=== PATIENT | female | born 1965 | race Two or more races ===

== ENCOUNTER 2017-10-18 12:44 | Emergency (ER) | payer BC, OTHER ==
[2017-10-18 12:56] VITALS: TEMP 98.5; BMI 25.6
--- NOTE | 2017-10-18 13:29 | PDOC ---
History of Present Illness <Stephanie Mauro - Last Filed: 10/18/17 15:23> - General History Source: Patient Exam Limitations: No Limitations - History of Present Illness Initial Comments: 10/18/17 17:12 Patient is a 52 year old female with no significant past medical history who presents to the ED with complaints of chest pain that began this morning. Patient reports being at work when she began to experience sudden chest pain that lasted a few minutes. She reports experience bilateral lower back pain yesterday afternoon. Patient reports experiencing intermittent SOB, cough, and congestion, stating she believes she has a cold or bronchitis. She currently states she has not see her PCP in 4 years. Denies nausea, vomiting, Denies fevers, chills. Denies contact with sick individuals, out of state travelling. Denies any other symptoms. Allergies: None Social history: Current smoker (8 cigarettes per day). No alcohol. No illicit drugs. Surgical history: None PMD: Dr. Hopper <Wilmar Chris - Last Filed: 10/18/17 17:13> - General Chief Complaint: Chest Pain Stated Complaint: CHEST PAIN Time Seen by Provider: 10/18/17 13:07 Past History - Suicide/Smoking/Psychosocial Hx Smoking Status: Yes Smoking History: Current every day smoker Have you smoked in the past 12 months: Yes Number of Cigarettes Smoked Daily: 8 Information on smoking cessation initiated: No <Stephanie Mauro - Last Filed: 10/18/17 15:23> <Wilmar Chris - Last Filed: 10/18/17 17:13> - Past Medical History Allergies/Adverse Reactions: Allergies Allergy/AdvReac Type Severity Reaction Status Date / Time No Known Allergies Allergy Verified 10/18/17 12:53 Home Medications: Ambulatory Orders Albuterol Sulfate Inhaler - [Ventolin HFA Inhaler -] 1 - 2 inh PO QID PRN #1 inhaler 10/18/17 Azithromycin [Zithromax 250mg Tablets -] 250 mg PO UTDICT #6 tab 10/18/17 Review of Systems - Review of Systems Able to Perform ROS?: Yes Comments:: 10/18/17 17:12 GENERAL/CONSTITUTIONAL: No fever or chills. No weakness. HEAD, EYES, EARS, NOSE AND THROAT: No change in vision. No ear pain or discharge. No sore throat. GASTROINTESTINAL: No nausea, vomiting, diarrhea or constipation. GENITOURINARY: No dysuria, frequency, or change in urination. CARDIOVASCULAR: +SOB. +Chest pain. +Cough RESPIRATORY: No cough, wheezing, or hemoptysis. MUSCULOSKELETAL: +Back pain. No joint or muscle swelling or pain. No neck. SKIN: No rash NEUROLOGIC: No headache, vertigo, loss of consciousness, or change in strength/ sensation. ENDOCRINE: No increased thirst. No abnormal weight change. HEMATOLOGIC/LYMPHATIC: No anemia, easy bleeding, or history of blood clots. ALLERGIC/IMMUNOLOGIC: No hives or skin allergy. All Other Systems: Reviewed and Negative <Wilmar Chris - Last Filed: 10/18/17 17:13> *Physical Exam - Vital Signs Last Vital Signs Temp Pulse Resp BP Pulse Ox 98.5 F 74 16 133/69 98 10/18/17 12:53 10/18/17 12:53 10/18/17 12:53 10/18/17 12:53 10/18/17 12:53 <Stephanie Mauro - Last Filed: 10/18/17 15:23> - Vital Signs Last Vital Signs Temp Pulse Resp BP Pulse Ox 98.5 F 56 L 18 109/60 97 10/18/17 12:53 10/18/17 15:55 10/18/17 15:55 10/18/17 15:55 10/18/17 15:55 - Physical Exam Comments: 10/18/17 17:12 GENERAL: +Looks anxious Awake, alert, and fully oriented, in no acute distress HEAD: No signs of trauma EYES: PERRLA, EOMI, sclera anicteric, conjunctiva clear ENT: +Intermittent loose cough. Auricles normal inspection, hearing grossly normal, nares patent, oropharynx clear without exudates. Moist mucosa NECK: Normal ROM, supple, no lymphadenopathy, JVD, or masses LUNGS: Breath sounds equal, clear to auscultation bilaterally. No wheezes, and no crackles HEART: Regular rate and rhythm, normal S1 and S2, no murmurs, rubs or gallops ABDOMEN: Soft, nontender, normoactive bowel sounds. No guarding, no rebound. No masses EXTREMITIES: Normal range of motion, no edema. No clubbing or cyanosis. No cords, erythema, or tenderness NEUROLOGICAL: Cranial nerves II through XII grossly intact. Normal speech, normal gait SKIN: Warm, Dry, normal turgor, no rashes or lesions noted. <Wilmar Chris - Last Filed: 10/18/17 17:13> ED Treatment Course - LABORATORY CBC & Chemistry Diagram: 10/18/17 13:50 10/18/17 13:50 <Stephanie Mauro - Last Filed: 10/18/17 15:23> - LABORATORY CBC & Chemistry Diagram: 10/18/17 13:50 10/18/17 13:50 - ADDITIONAL ORDERS Additional order review: Laboratory Results 10/18/17 13:50 Sodium 141 Potassium 4.3 Chloride 107 Carbon Dioxide 28 Anion Gap 6 L BUN 9 Creatinine 0.7 Creat Clearance w eGFR > 60 Random Glucose 92 Calcium 8.7 Total Bilirubin 0.3 AST 18 ALT 26 Alkaline Phosphatase 73 Creatine Kinase 94 Troponin I < 0.02 Total Protein 6.9 Albumin 3.8 10/18/17 13:50 RBC 4.87 MCV 86.4 MCHC 32.7 RDW 14.3 MPV 8.0 Neutrophils % 53.3 Lymphocytes % 36.6 Monocytes % 6.2 Eosinophils % 2.7 Basophils % 1.2 - Medications Given in the ED: ED Medications Discontinued Medications Generic Name Dose Route Start Last Admin Trade Name Bayron PRN Reason Stop Dose Admin Albuterol Sulfate 1 amp 10/18/17 13:41 10/18/17 14:07 Ventolin 0.083% Nebulizer Soln - NEB 10/18/17 13:42 1 amp ONCE ONE Administration <Wilmar Chris - Last Filed: 10/18/17 17:13> *DC/Admit/Observation/Transfer - Discharge Dispostion Admit: No <Stephanie Mauro - Last Filed: 10/18/17 15:23> - Attestations Scribe Attestion: 10/18/17 17:13 Documentation prepared by Wilmar Chris, acting as faculty i on call medical assistant for Stephanie Mauro MD, /DO. <Wilmar Chris - Last Filed: 10/18/17 17:13> Diagnosis at time of Disposition: Bronchitis - Discharge Dispostion Disposition: HOME Condition at time of disposition: Stable - Prescriptions Prescriptions: Albuterol Sulfate Inhaler - [Ventolin HFA Inhaler -] 1 - 2 inh PO QID PRN #1 inhaler PRN Reason: Short Of Breath/Wheezing Azithromycin [Zithromax 250mg Tablets -] 250 mg PO UTDICT #6 tab - Patient Instructions Printed Discharge Instructions: DI for Acute Bronchitis
[2017-10-18] MEDS ORDERED: ALBUTEROL SO4 0.083% IH SOL 2.5 MG/3 ML VIAL.NEB. NEB ONE ×2 (13:41→13:54)
[2017-10-18 14:22] LABS: BASO % 1.2 % (0-2.0); EOS % 2.7 % (0-4.5); HEMATOCRIT 42.1 % (32.4-45.2); HEMOGLOBIN 13.8 GM/dL (10.7-15.3); LYMPH % 36.6 % (8-40); MCH 28.3 pg (25.7-33.7); MCHC 32.7 g/dl (32.0-36.0); MEAN CELL VOLUME 86.4 fl (80-96); MONO % 6.2 % (3.8-10.2); NEUT % 53.3 % (42.8-82.8); PLATELET COUNT 246 K/MM3 (134-434); RBC 4.87 M/mm3 (3.60-5.2); RDW 14.3 % (11.6-15.6); WHITE BLOOD COUNT 6.8 K/mm3 (4.0-10.0)
[2017-10-18 15:12] LABS: ALBUMIN 3.8 g/dl (3.4-5.0); ANION GAP 6 (8-16); BILIRUBIN,TOTAL 0.3 mg/dL (0.2-1.0); BLOOD UREA NITROGEN 9 mg/dL (7-18); CALCIUM 8.7 mg/dL (8.5-10.1); CHLORIDE 107 mmol/L (98-107); CO2 28 mmol/L (21-32); CREATININE 0.7 mg/dL (0.55-1.02); GLUCOSE,RANDOM 92 mg/dL (74-106); POTASSIUM 4.3 mmol/L (3.5-5.1); SGOT/AST 18 U/L (15-37); SGPT/ALT 26 U/L (12-78); SODIUM 141 mmol/L (136-145)
[2017-10-18 15:13] LABS: ALK PHOS 73 U/L (45-117); TOT PROT 6.9 g/dl (6.4-8.2)
[2017-10-18 15:55] VITALS: BP 109/60; PULSE 56
--- NOTE | 2017-10-18 16:12 | EKG ---
Test Reason : Blood Pressure : / mmHG Vent. Rate : 064 BPM Atrial Rate : 064 BPM P-R Int : 148 ms QRS Dur : 084 ms QT Int : 392 ms P-R-T Axes : 077 064 065 degrees QTc Int : 404 ms NORMAL SINUS RHYTHM NORMAL ECG NO PREVIOUS ECGS AVAILABLE Confirmed by WING LUU MD ([id number]) on 10/18/2017 4:12:25 PM Referred By: Confirmed By:WING LUU MD
== END 2017-10-18 15:56 | disposition home or self-care (01) ==
LOC: JER 12:44
PROC: 3E0F7GC Introduction of Other Therapeutic Substance into Respiratory Tract, Via Natural or Artificial Opening (ICD-10-PCS; principal; 2017-10-18)
DX: J40 Bronchitis, not specified as acute or chronic (principal)
CPT/HCPCS: 36415; 71046-TC; 80053; 82550; 84484; 85025; 93005; 93010; 99284-25

== ENCOUNTER 2017-11-05 16:00 | Emergency (ER) | payer BC ==
[2017-11-05 16:21] VITALS: BMI 28.3
[2017-11-05] MEDS ORDERED: ALBUTEROL SO4 2.5/IPRATROPIUM 0.5 INH SOL 3 ML VIAL.NEB. NEB ONE (16:22)
--- NOTE | 2017-11-05 16:22 | PDOC ---
Rapid Medical Evaluation Time Seen by Provider: 11/05/17 16:18 Medical Evaluation: Allergies Allergy/AdvReac Type Severity Reaction Status Date / Time No Known Allergies Allergy Verified 11/05/17 16:17 11/05/17 16:18 The patient presents with a chief complaint of: Difficulty breathing, feels like a flare of her bronchitis.Seen here two weeks ago for similar symptoms I have performed a brief in-person evaluation of this patient; Pertinent physical exam findings: ambulatory, in no respiratory distress, afebrile, VSS. CTAB with coughing I have ordered the following: Duoneb The patient will proceed to the ED for further evaluation.
[2017-11-05 17:25] LABS: BASO % 1.1 % (0-2.0); EOS % 1.8 % (0-4.5); HEMATOCRIT 41.2 % (32.4-45.2); HEMOGLOBIN 14.2 GM/dL (10.7-15.3); LYMPH % 48.2 % (8-40); MCH 29.3 pg (25.7-33.7); MCHC 34.4 g/dl (32.0-36.0); MEAN CELL VOLUME 85.1 fl (80-96); MEAN PLT VOLUME 7.8 fl (7.5-11.1); NEUT % 37.9 % (42.8-82.8); PLATELET COUNT 205 K/MM3 (134-434); RBC 4.84 M/mm3 (3.60-5.2); RDW 13.9 % (11.6-15.6); WHITE BLOOD COUNT 4.3 K/mm3 (4.0-10.0)
[2017-11-05 17:50] LABS: ALBUMIN 4.2 g/dl (3.4-5.0); ANION GAP 9 (8-16); BILIRUBIN,TOTAL 0.3 mg/dL (0.2-1.0); BLOOD UREA NITROGEN 9 mg/dL (7-18); CALCIUM 8.9 mg/dL (8.5-10.1); CHLORIDE 104 mmol/L (98-107); CO2 25 mmol/L (21-32); CREATININE 0.7 mg/dL (0.55-1.02); GLUCOSE,RANDOM 108 mg/dL (74-106); POTASSIUM 3.6 mmol/L (3.5-5.1); SGOT/AST 19 U/L (15-37); SODIUM 138 mmol/L (136-145); TOT PROT 7.3 g/dl (6.4-8.2)
[2017-11-05 17:51] LABS: ALK PHOS 67 U/L (45-117); SGPT/ALT 30 U/L (12-78)
--- NOTE | 2017-11-05 18:21 | PDOC ---
History of Present Illness - General Chief Complaint: Shortness of Breath Stated Complaint: RESPIRATORY Time Seen by Provider: 11/05/17 16:18 - History of Present Illness Initial Comments: Ms Lerma is a 52yo F with a 20+ pack year smoking history who presents with progressively worsening dyspnea and productive cough for 1-2 weeks. She was seen in the ER 2 weeks ago with chest pain that improved w/ duoneb treatment. She was diagnosed with acute bronchitis and sent home on Albuterol and Zithromax x5 days. She completed the antibiotic regimen and states the albuterol made her dyspnea worse. She continued to have productive cough w/ thick yellow sputum, which only improved w/ a duoneb treatment received in the ER today. She denies CP, denies leg edema, denies wheezing. She continues to smoke. Denies fevers, chills. Also endorsed an episode of peripheral Past History - Past Medical History Allergies/Adverse Reactions: Allergies Allergy/AdvReac Type Severity Reaction Status Date / Time No Known Allergies Allergy Verified 11/05/17 16:17 Home Medications: Ambulatory Orders Albuterol Sulfate Inhaler - [Ventolin HFA Inhaler -] 1 - 2 inh PO QID PRN #1 inhaler 10/18/17 Prednisone See Taper PO DAILY #1 tab.ds.pk 11/05/17 COPD: No - Suicide/Smoking/Psychosocial Hx Smoking Status: Yes Smoking History: Current every day smoker Have you smoked in the past 12 months: Yes Number of Cigarettes Smoked Daily: 10 Information on smoking cessation initiated: Yes 'Breaking Loose' booklet given: 11/05/17 Hx Alcohol Use: No Drug/Substance Use Hx: No Substance Use Type: None Review of Systems - Review of Systems Able to Perform ROS?: Yes Constitutional: No: Chills, Diaphoresis, Fever HEENTM: No: Eye Pain, Blurred Vision, Tearing Respiratory: Yes: Cough, Shortness of Breath. No: Stridor, Wheezing Cardiac (ROS): No: Chest Pain, Edema ABD/GI: No: Abdominal Distended, Abd. Pain w/ defecation, Constipated, Diarrhea : No: Burning, Dysuria Musculoskeletal: No: Back Pain, Joint Pain Integumentary: No: Bruising, Flushing Neurological: No: Headache, Numbness, Paresthesia Psychiatric: No: Anxiety, Depression Endocrine: No: Excessive Sweating, Flushing Hematologic/Lymphatic: No: Anemia, Blood Clots *Physical Exam - Vital Signs Last Vital Signs Temp Pulse Resp BP Pulse Ox 98.9 F 70 18 129/87 98 11/05/17 16:17 11/05/17 16:17 11/05/17 16:17 11/05/17 16:17 11/05/17 16:17 - Physical Exam Comments: GEN: AAOx3, NAD, Lying comfortably, coughing intermittently HEENT: PERRLA, EOMi CV: S1, S2, RRR LUNG: CTABL ABD: Soft, NT, ND, normoactive BS MSK: No edema, no erythema NEURO: CN 2-12 intact ED Treatment Course - LABORATORY CBC & Chemistry Diagram: 11/05/17 16:57 11/05/17 16:57 - ADDITIONAL ORDERS Additional order review: Laboratory Results 11/05/17 11/05/17 16:57 16:57 WBC 4.3 D RBC 4.84 Hgb 14.2 Hct 41.2 MCV 85.1 MCH 29.3 MCHC 34.4 RDW 13.9 Plt Count 205 MPV 7.8 Neutrophils % 37.9 L D Lymphocytes % 48.2 H D Monocytes % 11.0 H Eosinophils % 1.8 Basophils % 1.1 Sodium 138 Potassium 3.6 Chloride 104 Carbon Dioxide 25 Anion Gap 9 BUN 9 Creatinine 0.7 Creat Clearance w eGFR > 60 Random Glucose 108 H Calcium 8.9 Total Bilirubin 0.3 AST 19 ALT 30 Alkaline Phosphatase 67 Total Protein 7.3 Albumin 4.2 11/05/17 16:57 RBC 4.84 MCV 85.1 MCHC 34.4 RDW 13.9 MPV 7.8 Neutrophils % 37.9 L D Lymphocytes % 48.2 H D Monocytes % 11.0 H Eosinophils % 1.8 Basophils % 1.1 - Medications Given in the ED: ED Medications Discontinued Medications Generic Name Dose Route Start Last Admin Trade Name Freq PRN Reason Stop Dose Admin Albuterol/Ipratropium 1 amp 11/05/17 16:22 11/05/17 16:37 Duoneb - NEB 11/05/17 16:23 1 amp ONCE ONE Administration Medical Decision Making - Medical Decision Making 52yo F with a 20+ pack year smoking hx who presents w/ progressively worsening productive cough and dyspnea. Recently seen in ER for acute bronchitis, finished 5 days course of Zithromax, but has not improved. I suspect that the patient has a mild chronic obstructive pulmonary disease component, and this is likely a mild exacerbation. Patient improved w/ duoneb. WIll treat with Prednisone taper. *DC/Admit/Observation/Transfer Diagnosis at time of Disposition: COPD with acute exacerbation - Discharge Dispostion Disposition: HOME Condition at time of disposition: Improved Admit: No - Prescriptions Prescriptions: Prednisone See Taper PO DAILY #1 tab.ds.pk - Referrals Referrals: Brandy Hopper MD [Primary Care Provider] - 7 days Ronni Ramirez MD [Staff Physician] - 7 days (For Pulmonary Function Tests) - Patient Instructions Printed Discharge Instructions: DI for Chronic Obstructive Pulmonary Disease Additional Instructions: You were seen in the Emergency room due to coughing and shortness of breath. We believe that you likely have a component of COPD (Chronic Obstructive Pulmonary Disease). We think this is a mild exacerbation of your COPD. We will give you a prednisone dosing taper, which will help with your symptoms. We also believe you should see a [facility] for Pulmonary Function Tests. - Post Discharge Activity
[2017-11-05] MEDS ORDERED: predniSONE 20 MG TABLET (UD) PO ONE (18:27)
--- NOTE | 2017-11-05 18:32 | PDOC ---
Attending Attestation - Resident Resident Name: Fozia Holland - ED Attending Attestation I have performed the following: I have examined & evaluated the patient, The case was reviewed & discussed with the resident, I agree w/resident's findings & plan, Exceptions are as noted - HPI HPI: 11/05/17 18:28 52 yo female with 20 pack year h/o tobacco use p/w persistent cough , no fever -the cough is a dry hacking cough -she felt better after receiving a duoneb - Physicial Exam PE: 11/05/17 18:32 wnwd 52 yo female in no acute resp distress head ncat neck supple lungs scant wheezing cvs [id number] abd nontender ext no deformity,no erythema neuro no gross focal neuro deficits skin no vescicles,no rashes - Medical Decision Making 11/05/17 18:35 IMP copd mild
[2017-11-05] MEDS ORDERED: predniSONE 20 MG TABLET (UD) ONE (18:52)
[2017-11-05 19:08] VITALS: BP 121/56; PULSE 80; TEMP 98.1
== END 2017-11-05 19:08 | disposition home or self-care (01) ==
LOC: JER 16:00
PROC: 3E0F7GC Introduction of Other Therapeutic Substance into Respiratory Tract, Via Natural or Artificial Opening (ICD-10-PCS; principal; 2017-11-05)
DX: J44.1 Chronic obstructive pulmonary disease with (acute) exacerbation (principal)
CPT/HCPCS: 36415; 80053; 85025; 99283-25

== ENCOUNTER 2019-01-26 08:23 | Emergency (ER) | payer BC, OTHER ==
[2019-01-26 08:32] VITALS: BP 138/63; PULSE 71; TEMP 98.1; BMI 25.6
--- NOTE | 2019-01-26 09:19 | PDOC ---
History of Present Illness - General Chief Complaint: Respiratory Stated Complaint: FEVER W/ RASH Time Seen by Provider: 01/26/19 08:39 History Source: Patient - History of Present Illness Timing/Duration: reports: other Past History - Past Medical History Allergies/Adverse Reactions: Allergies Allergy/AdvReac Type Severity Reaction Status Date / Time No Known Allergies Allergy Verified 01/26/19 08:59 Home Medications: Ambulatory Orders NK [No Known Home Medication] 01/26/19 COPD: No - Suicide/Smoking/Psychosocial Hx Smoking Status: Yes Smoking History: Current every day smoker Have you smoked in the past 12 months: Yes Number of Cigarettes Smoked Daily: 10 Information on smoking cessation initiated: No 'Breaking Loose' booklet given: 11/05/17 Hx Alcohol Use: No Drug/Substance Use Hx: No Substance Use Type: None Review of Systems - Review of Systems Constitutional: No: Chills, Fever HEENTM: No: Ear Pain, Throat Pain Respiratory: Yes: Cough. No: Shortness of Breath Integumentary: Yes: Rash *Physical Exam - Vital Signs Last Vital Signs Temp Pulse Resp BP Pulse Ox 98.1 F 71 18 138/63 99 01/26/19 08:28 01/26/19 08:28 01/26/19 08:28 01/26/19 08:28 01/26/19 08:28 - Physical Exam General Appearance: Yes: Appropriately Dressed. No: Apparent Distress HEENT: positive: Normal ENT Inspection, Normal Voice. negative: Scleral Icterus (R), Scleral Icterus (L) Neck: positive: Supple. negative: Lymphadenopathy (R), Lymphadenopathy (L) Respiratory/Chest: positive: Lungs Clear, Normal Breath Sounds. negative: Respiratory Distress Cardiovascular: positive: Regular Rate, S1, S2 Integumentary: positive: Dry, Warm, Other (acne lesions to chin, no obvious swelling ) Neurologic: positive: Fully Oriented, Alert, Normal Mood/Affect Medical Decision Making - Medical Decision Making 01/26/19 09:35 53 yo F, no sig hx, here w/ multiple complaints including cough and congestion x several days. No hemoptysis, sob, f/c. No sick contacts. No h/o tob use. Pt also reports that she has acne to chin and now has pain to site and possible swelling See exam Viral URI Exam unremarkable -dc w/ supportive tx Facial acne No e/o infection -dc w/ warm compresses as needed -pmd for derm f/u as needed *DC/Admit/Observation/Transfer Diagnosis at time of Disposition: Rash and nonspecific skin eruption URI (upper respiratory infection) Qualifiers: URI type: unspecified viral URI Qualified Code(s): J06.9 - Acute upper respiratory infection, unspecified - Discharge Dispostion Disposition: HOME - Referrals - Patient Instructions Printed Discharge Instructions: DI for Viral Upper Respiratory Infection -- Adult Additional Instructions: Your facial rash appears to be inflamed acne Apply warm compresses as directed and follow up with your PMD as needed - Post Discharge Activity
== END 2019-01-26 09:25 | disposition home or self-care (01) ==
LOC: JERFT 08:23
DX: J06.9 Acute upper respiratory infection, unspecified (principal); R21 Rash and other nonspecific skin eruption; B97.89 Other viral agents as the cause of diseases classified elsewhere; F17.210 Nicotine dependence, cigarettes, uncomplicated
CPT/HCPCS: 99281-25